=== PATIENT | male | born 1985 | race Caucasian/White ===

== ENCOUNTER 2019-07-25 12:57 | Inpatient (IN) ==
[2019-07-25] MEDS ORDERED: LR 1,000 ML ONE (13:42)
[2019-07-25] MEDS ORDERED: KEFZOL 1 GM/D5W 2 GM/100 ML IVPB ONE (13:42)
[2019-07-25] MEDS ORDERED: XYLOCAINE-MPF 2% ONE (14:56)
[2019-07-25] MEDS ORDERED: ROBINUL ONE (14:56)
[2019-07-25] MEDS ORDERED: FENTANYL ONE (14:57)
[2019-07-25] MEDS ORDERED: DIPRIVAN 1% ONE (14:58)
[2019-07-25] MEDS ORDERED: VALIUM PO ONE (16:00)
[2019-07-25] MEDS ORDERED: VALIUM ONE (16:03)
[2019-07-25] MEDS ORDERED: VERSED ONE (16:26)
[2019-07-25] MEDS ORDERED: SENSORCAINE-MPF 0.5%/EPI 1:200,000 ONE (16:33)
[2019-07-25] MEDS ORDERED: MARCAINE 0.5% PF ONE (16:34)
[2019-07-25] MEDS ORDERED: DECADRON ONE (19:02)
[2019-07-25] MEDS ORDERED: VANCOMYCIN ONE (19:44)
[2019-07-25] MEDS ORDERED: TORADOL ONE (19:57)
[2019-07-25] MEDS ORDERED: ZOFRAN ONE (19:57)
[2019-07-25] MEDS ORDERED: DILAUDID ONE (20:22)
[2019-07-25] MEDS ORDERED: NS 1,000 ML ONE (21:02)
[2019-07-25] MEDS ORDERED: MORPHINE IV PRN (21:12)
[2019-07-25] MEDS ORDERED: ZOFRAN IV PRN (21:12)
[2019-07-25] MEDS ORDERED: MILK OF MAGNESIA PO PRN (21:12)
[2019-07-25] MEDS ORDERED: HALDOL IV PRN (21:12)
[2019-07-25] MEDS ORDERED: PERCOCET-5 PO PRN ×2 (21:50)
[2019-07-26] MEDS: TYLENOL PO SCH ×3 (00:08→14:03)
[2019-07-26] MEDS: KEFZOL 1 GM/D5W 1 GM/50 ML IVPB IV SCH ×3 (01:33→17:45)
[2019-07-26 07:17] LABS: BASO# 0.02 X1000 (0.0-0.2); BASO% 0.1 % (0.0-0.8); HEMATOCRIT 38.3 % (42.0-52.0); HEMOGLOBIN 12.4 g/dL (14.0-18.0); IMM GRAN# 0.05 X1000 (0.0-0.04); IMM GRAN% 0.3 % (0.0-0.5); LYMPH# 1.47 X1000 (1.2-3.4); LYMPH% 8.9 % (20.5-51.1); MCHC 32.4 g/dL (33-37); MCV 89.5 FL (81-99); MONO# 1.74 X1000 (0.11-0.59); MONO% 10.6 % (1.7-9.3); MPV 9.7 FL (7.4-10.4); NEUT% 80.1 % (42.2-75.2); PLT 315 X1000 (130-400); RBC 4.28 XMIL (4.7-6.1); RDW 13.5 % (11.5-14.5); WBC 16.48 X1000 (4.8-10.8)
[2019-07-26 08:23] LABS: AGAP 15; BUN 13 mg/dL (8-22); CALCIUM 8.6 mg/dL (8.8-10.2); CHLORIDE 101 mmol/L (98-107); COSMO 276; CREATININE 0.8 mg/dL (0.7-1.2); ESTIMATED GFR > 60; GLUCOSE 136 mg/dL (70-104); POTASSIUM 4.5 mmol/L (3.5-5.1); SODIUM 137 mmol/L (136-145); TCO2 21 mmol/L (25-35)
--- NOTE | 2019-07-26 08:45 | OPERATIVE NOTE ---
PROCEDURE DATE: 07/25/2019 PREOPERATIVE DIAGNOSES: 1. Right open distal radial shaft fracture with intra-articular involvement. 2. Right acute carpal tunnel syndrome. POSTOPERATIVE DIAGNOSES: 1. Right type 1 open intra-articular distal radius and shaft fracture. 2. Right acute carpal tunnel syndrome. PROCEDURES PERFORMED: 1. Debridement and irrigation of skin, muscle, and bone of open radial shaft fracture with intra- articular involvement. 2. Open reduction and internal fixation of right intra-articular distal radius fracture. 3. Mini open carpal tunnel release. SURGEON: Dr. Larry Marie. ASSISTANTS: 1. Lucy Narvaez. 2. Leslie Moses. ANESTHESIA: LMA. COMPLICATIONS: None. SPECIMENS: None. DRAINS: None. BLOOD LOSS: 100 mL. IMPLANTS: Biomet Crosslock DVR plate was used, size 125 mm x 24 mm. INDICATIONS FOR PROCEDURE: Mr. Michael is a 33-year-old gentleman who presented to the clinic today after sustaining a crush injury to his right forearm at work. Patient works as a heavy logging equipment mechanic and states, this morning, a metal plate from a machine fell onto his right forearm, that weighed about 250 pounds. His co-worker was immediately able to remove the metal. However, he was found to have 3 wounds on the dorsal aspect of his wrist. He was immediately taken to [facility] ER where x-rays were taken, demonstrating a comminuted radial shaft fracture with intra-articular split. Given these findings, the patient was given a dose of Ancef in the ER and then transferred to my office for evaluation. We then set him up with surgery this afternoon to undergo the above procedures. Risks, benefits, and alternative therapies were discussed the patient and family regarding diagnosis and treatment options. Risks of surgery included but were not limited to risks of bleeding, infection, damage to nerves and vessels around the area, malunion, nonunion, symptomatic hardware, and need for revision surgery. There is also the risks of anesthesia including blood clot, stroke, heart attack, and even . Patient understands these risks. All questions were answered. Informed consent was obtained. PROCEDURE IN DETAIL: Mr. Michael was identified by wristband and greeted in the preop holding area on 07/25/2019. His right upper extremity, which was the operative site, was marked with indelible ink per [facility] Sign Your Site protocol. Following this, the patient was transferred back to the operating room for surgery. Upon entering the OR, he was transferred in a supine position onto the Skytron table. All bony prominences were well padded. LMA was then placed. At this time, the right upper extremity was prepped and draped in a routine sterile fashion. Formal time-out was performed, confirming correct patient, procedure, operative site, operative side, and administration of preop antibiotics. Everyone was in agreement. Patient received 2 g of Ancef prior to incision. Esmarch was used to exsanguinate the right upper extremity and tourniquet was elevated to 250 mmHg. Total tourniquet time was 1 hour and 33 minutes. At this time, a separate DNI tray and station were placed on a separate Nolan. A 15 blade knife was used to extend his traumatic wounds on the dorsal aspect of his wrist. Patient had 3 wounds, with the largest of the wounds measuring about 2 cm. The other 2 wounds were poke-hole. A knife was used to excise the wound edges. We then palpated deeply into the wound and excised any subcutaneous tissue that appeared contaminated. The patient likely had an outside-in type injury from the crush. A fracture site was palpated through the distal radial-most wound. Once we were done with mechanical debridement of these wounds, they were then copiously irrigated with 2 L of normal saline. Once this was done, we then turned the arm over and began with our volar FCR approach in order to curette and debride the fracture site. A knife was used to make a 15 cm incision over the FCR tendon, extending from the wrist crease proximally. A knife was used to dissect through skin, subcutaneous fat, down to FCR tendon. The tendon sheath was then incised and the tendon was retracted ulnarly. We then incised the dorsal FCR tendon sheath. At this time, the patient was found to have some bulging of his FPL muscle belly. The FPL was retracted ulnarly as well and taken off the radial border of the radius sharply with a knife. Once this was done, pronator quadratus was identified. We then took off the radial side of the pronator and retracted this ulnarly as well to protect the median nerve. At this time, we had good exposure of our fracture site. Fracture site was copiously debrided using a dental pick, curette, and hemostat for mechanical debridement. Once we were satisfied with our debridement, the wound was then copiously irrigated with 6 L of normal saline. At this time, the arm was re-prepped with ChloraPrep. All top gloves were changed and a new down sheet was placed. We then proceeded with our open carpal tunnel release. A 25 mm longitudinal incision was made in line with the radial border of the 4th finger and the 3rd web space. A knife was used to dissect through skin and subcutaneous fat, down to palmar fascia. Palmar fascia was then easily identified and split longitudinally. Ragnell retractors were then placed, retracting the fascia and exposing transverse carpal ligament. At this time, a 15 blade knife was then used to make a longitudinal incision in the transverse carpal ligament. Once this was done, median nerve was identified. We first released the distal aspect of the incision using a knife. Mets scissors were used to spread superficial to the ligament in order to release any overlying palmar fascia. Once we had released the ligament fully, distally, we then turned our attention to proximal release. Again, Mets scissors were used to spread both the superficial and deep to the transverse carpal ligament, and scissors were used to release the ligament into the antebrachial fascia of the forearm. Once we were fully satisfied with our release, we then observed the nerve which was found to be in continuity. He had minimal contusion to the nerve in the carpal tunnel. It was found to be in continuity. At this time, we turned our attention to fixation of the fracture. We first started with lagging our proximal and distal split fragments using interlock lagging technique by lag bite technique. Two 2.7 mm lag screws were placed into the proximal split of the fracture, providing absolute fixation of these pieces. We had excellent purchase with our lag screws proximally. Following this, we then placed 2 lag screws transversely across the distal fracture split which extended intra-articularly. We had anatomic reduction of our articular fragment with these screws. At this time, a reduction maneuver was performed using lobster claw clamps and provisional reduction was obtained. Fluoroscopy was brought in, confirming reduction of the fracture. A Biomet 125 mm Crosslock plate was then opened and placed in the wound. When we were satisfied with the position of the plate on both the AP and lateral x-rays, it was then pinned into position with a K-wire. We then proceeded with placement of our distal cluster of screws first. A 2.7 mm cortical screw was first placed in order to secure the plate down onto bone and restore volar tilt. Once this was done, we then proceeded with filling the other 6 screws with 2.7 mm locking screws. Our most distal lag screw was found to be in the way of several of the screw holes, so once we felt like we had adequate fixation distally, this distal-most lag screw was removed. We did not lose any reduction with this. Once this was removed, the remainder of the distal locking screws were placed. At this time, we then proceeded with placement of 2.7 mm cortical screws in the compression holes proximally. We obtained compression two separate times. Patient was found to have anatomic reduction of his comminuted fracture site with good compression across the fractures. Following this, we placed an additional 3 locking screws into the proximal aspect of the plate in routine fashion. At this time, final AP and lateral x-rays were taken of the forearm as well as magnified views of the wrist, confirming anatomic reduction of the fracture with good placement and alignment of the plate on bone and extra-articular placement of all screws. The plate sat distal to the watershed line. A dorsal tangential view was also obtained, confirming placement of the screws without any dorsal penetration. At this time, the wound was again copiously irrigated with an additional 2 L of normal saline. Tourniquet was then deflated. Again, total tourniquet time was 1 hour and 33 minutes. Bovie cautery was used to obtain hemostasis. The patient was found to have a good radial pulse once the tourniquet was deflated. At this time, we then turned our attention to examination of the median nerve at the fracture site proximal to the carpal tunnel. The nerve was found to be in continuity and did have some hematoma and signs of contusion around the nerve, likely secondary to the crush injury. One gram of vancomycin powder was then placed in the wound, along the plate and deep tissues. Then 2-0 PDS suture was used for closure of our pronator quadratus over the plate. Then 30 mL of 0.25% Marcaine with epinephrine were then injected deep in the wound as well as superficially around the subcutaneous tissue. An additional 6 mL of 0.5% Marcaine plain were injected around the carpal tunnel incision. At this time, we proceeded with closure of the wound using 2-0 PDS for subcutaneous tissue closure, followed by 3-0 nylon for skin closure in a horizontal mattress fashion. Nylon 3-0 was also used for closure of our carpal tunnel wounds. At this time, the arm was cleaned and wounds were dressed with Xeroform, 4x4s, ABD, sterile Webril, and a volar slab splint. Patient was then awoken, transferred over to his hospital stretcher, and taken to recovery in stable condition. There were no acute complications of the procedure. All sponge and sharp counts were correct at the conclusion of the procedure. [facility]
[2019-07-26] MEDS: NS 1,000 ML IV SCH ×3 (09:58→23:12)
--- NOTE | 2019-07-26 15:16 | ORTHOPAEDICS PROGRESS NOTE ---
DATE: 07/26/2019 SUBJECTIVE: No acute events overnight. Patient is doing well. His pain is well controlled. He is still reporting numbness in his median nerve distribution, similar as he was prior to surgery. He is tolerating a diet. He is urinating voluntarily. OBJECTIVE: Hematocrit is 38. Afebrile. Vital signs are stable. Extremities: Examination of the right upper extremity shows the splint to be clean, dry, and intact. He has brisk capillary refill in all fingers. Motor is intact to AIN, PIN, and ulnar nerve distribution. Sensation is intact to light touch, ulnar nerve distribution. He does have some paresthesias and with 1/2 sensation in his median nerve distribution as well as superficial radial nerve distribution. His proximal forearm is soft and compressible. ASSESSMENT: A 33-year-old male, status post open reduction and internal fixation of right intra-articular distal radius fracture, as well as mini open carpal tunnel release, postoperative day 1. PLAN: 1. Patient is to be nonweightbearing to the right upper extremity. He is to keep his right hand iced and elevated at all times to help the swelling. 2. Ancef q.8 hours x48 hours for his open fracture. 3. We will discontinue IV fluids. 4. The patient is to be out of bed, in the chair, and around ambulating 2 to 3 times per day. 5. Disposition. We will plan on keeping the patient until tomorrow morning when he receives his last dose of IV antibiotics. He should then be okay to be discharged home tomorrow with plans for followup in clinic in 10 to 14 days. [facility]ENTER[facility]al[facility]
[2019-07-26] MEDS ORDERED: COLACE PO SCH (21:00)
[2019-07-26] MEDS: OXY IR PO PRN (23:29)
[2019-07-27] MEDS: KEFZOL 1 GM/D5W 1 GM/50 ML IVPB IV SCH ×3 (01:18→07:59)
[2019-07-27] MEDS: TYLENOL PO SCH ×2 (02:59→05:35)
[2019-07-27] MEDS: OXY IR PO PRN ×2 (03:16→07:01)
[2019-07-27 07:29] VITALS: BP 141/86
--- NOTE | 2019-07-27 12:52 | ORTHOPAEDICS PROGRESS NOTE ---
DATE: 07/27/2019 SUBJECTIVE: No acute events overnight. Patient is doing well. Pain is well controlled. Tolerating diet. Urinating voluntarily. He has been ambulating around the halls with no issues. OBJECTIVE: Vital Signs: Afebrile. Vital signs stable. Extremities: Examination of right upper extremity shows a volar slab splint to be intact and in good repair. His forearm is soft and compressible proximally. Motor is intact, AIN, PIN, and ulnar nerve distribution. He still has some paresthesias and 1/2 sensation in his superficial radial nerve as well as median nerve distribution. Ulnar nerves sensation is intact. Brisk capillary refill x5. ASSESSMENT: 34-year-old male status post crush injury to the right forearm with right open intra- articular distal radius fracture and acute carpal tunnel syndrome. Postop day 2. PLAN: 1. The patient is nonweightbearing, right upper extremity. He should continue to keep it iced and elevated as needed for pain and swelling. 2. The patient will finish his 48 hours of antibiotic of Ancef this morning. 3. Disposition. The patient can be discharged home this morning after finishing his last dose of Ancef. I will plan on seeing him in clinic in 2 weeks for wound check and to transition him into a cast. He is given a prescription for pain medication as well as nausea medicines to take as needed.
--- NOTE | 2019-07-28 08:20 | DISCHARGE SUMMARY ---
ADMISSION DATE: 07/25/2019 DISCHARGE DATE: 07/27/2019 ADMISSION DIAGNOSES: 1. Right open intra-articular distal radius fracture. 2. Right acute carpal tunnel syndrome. DISCHARGE DIAGNOSES: 1. Right open intra-articular distal radius fracture. 2. Right acute carpal tunnel syndrome. PROCEDURES: 1. Open reduction internal fixation of right open distal radius fracture. 2. Debridement and irrigation of skin, muscle, and bone of right forearm open fracture. 3. Right open carpal tunnel release. CONSULTATIONS: None. COMPLICATIONS: None. BRIEF HOSPITAL COURSE: Mr. Michael is a 34-year-old gentleman who sustained a crush injury to his right forearm on 07/25/2018. He was taken to the operating room that evening to undergo the above procedures. The patient tolerated surgery well with no acute complications. He was transferred to the floor after surgery. He had no medical complications during his stay. We kept him in- house to receive 48 hours of IV Ancef. During his hospitalization, he was tolerating a diet. His pain was well controlled on p.o. pain medication. He was urinating voluntarily. After he completed this 48 hours of Ancef, the patient was thus discharged home. DISPOSITION: Discharged home. ACTIVITY: Nonweightbearing, right upper extremity. MEDICATIONS: 1. Percocet. 2. Zofran. DISCHARGE INSTRUCTIONS: 1. The patient is to keep his splint clean, dry, and intact until followup appointment. 2. Instructed him to work on elbow and finger range of motion exercises. 3. The patient is to follow up with me in clinic in 10 to 14 days for wound check and suture removal. 4. The patient was instructed to return to the ER with any acute onset chest pain, shortness of breath, fever greater 101.5, or drainage from surgical incision.
== END 2019-07-27 08:59 | disposition home or self-care (01) | DRG 512 ==
LOC: OR 12:57 → 4N 21:34
PROVIDERS: ADMIT Orthopaedic Surgery Sports Medicine; ATTEND Orthopaedic Surgery Sports Medicine